=== PATIENT | female | born 1990 | race Two or more races ===

== ENCOUNTER 2024-03-09 11:22 | Emergency (ER) | payer MEDICAID, OTHER ==
[~2024-03-09] VITALS: Ht 162.6 cm; Wt 53.3 kg
[2024-03-09 11:50] VITALS: BP 112/62; PULSE 98; RESP 16; O2SAT 100
[2024-03-09 14:19] LABS: Urine Bacteria FEW /hpf (None Seen); Urine Blood Negative /uL (Negative); Urine Clarity Clear (Clear); Urine Color Colorless (Yellow); Urine Protein, UAD Negative (Negative); Urine Specific Gravity 1.003 (1.001-1.035); Urine Urobilinogen Normal (Negative); Urine WBC 3 /hpf (0 - 5); Urine pH 6.5 (5.0-9.0)
[2024-03-09] MEDS ORDERED: CEPH250C PO (15:09)
== END 2024-03-09 15:23 | disposition home or self-care (01) ==
LOC: ER 11:22
DX: O23.31 Infections of other parts of urinary tract in pregnancy, first trimester (principal); R10.2 Pelvic and perineal pain; N39.0 Urinary tract infection, site not specified; Z3A.01 Less than 8 weeks gestation of pregnancy
CPT/HCPCS: 36415; 76801; 76817; 81001; 84702